=== PATIENT | female | born 1935 | race Caucasian/White ===

== ENCOUNTER 2022-05-06 11:17 | Emergency (ER) | payer MEDICARE, MEDICAID, SELFPAY ==
[2022-05-06 11:19] VITALS: BP 146/108; PULSE 78; RESP 16; TEMP 37.1; O2SAT 97
--- NOTE | 2022-05-06 11:33 | XRR_ITS ---
PROCEDURE INFORMATION: Exam: XR Left Hip Exam date and time: 05/06/2022 12:13 PM Age: 86 years old Clinical indication: Pain and injury or trauma; Fall; Blunt trauma (contusions or hematomas); Hip pain; Left hip; Injury date: 2 weeks ago; Additional info: Pain; Fall 2 weeks ago, only 2 views submitted by tech TECHNIQUE: Imaging protocol: Radiologic exam of the Left hip. Views: 2 or 3 views hip with pelvis when performed. COMPARISON: No relevant prior studies available. FINDINGS: Limitations: Very low contrast resolution related to body habitus. Bones/joints: Femoroacetabular alignment is normal. The pelvis and proximal femora are grossly intact. Assessment for nondisplaced fracture is very limited. There is moderate degenerative disease in the lower lumbar spine. Soft tissues: Soft tissues are unremarkable. XR/XR hip LT 2-3V wo/w pel* [id number] IMPRESSION: Limited assessment for fracture. Consider repeat radiographs or CT.
--- NOTE | 2022-05-06 11:33 | W.ED.EXTPRO ---
HPI - Extremity Problem General: Chief complaint: Extremity Injury, Lower Stated complaint: LEFT HIP PAIN Time Seen by Provider: 05/06/22 11:27 Source: patient Mode of arrival: EMS Limitations: no limitations History of Present Illness: See nursing assessment. Patient states she fell 2 weeks ago landing on her left side. She states she has had left hip pain and left anterior lateral pelvis pain since then. She is able to walk but states it hurts to walk. States the pain is worse at night. It does improve through the night and is mild in the morning. She denies being on blood thinners. She denies any other problems. Quality: aching Radiation: none Associated symptoms: Deny chest pain, fever(s) or rash Review of Systems Const: Denies: fever(s) or chills Eyes: Denies: change in vision ENMT: Denies: throat pain Card: Denies: chest pain Resp: Denies: dyspnea GI: Denies: abdominal pain, nausea or vomiting : Denies: flank pain Musc: Reports: joint pain; Denies: neck pain, back pain, extremity swelling, joint swelling, joint redness or joint warmth Skin/Breast: Denies: rash or pruritus Neuro: Denies: headache(s) or numbness in extremities Psych: Denies: anxiety Jonas/Lymph: Denies: enlarged lymph nodes Physical Exam Const: COMMON NORMALS: no acute distress, patient oriented x3, no limitations and well nourished GENERAL APPEARANCE: cooperative HENMT: COMMON NORMALS: normocephalic and atraumatic HEAD & SCALP: normocephalic and atraumatic FACE & SINUS: normal facial exam Eye: COMMON NORMALS: EOMs intact bilaterally Neck/C-Spine: COMMON NORMALS: full ROM, no lymphadenopathy and supple GENERAL: Yes normal visual inspection Lymph: LYMPHATIC: no lymphadenopathy noted Chest: COMMONS NORMALS: normal inspection of the chest and normal palpation of entire chest wall CHEST: No Ecchymosis present and No rash Resp: COMMON NORMALS: normal respiratory effort, No retractions and clear to auscultation bilaterally EFFORT & INSPECTION: No respiratory distress AUSCULTATION: clear to auscultation bilaterally Cardio: COMMON NORMALS: regular rate, regular rhythm and Peripheral pulses 2+ throughout JUGULAR VENOUS DISTENTION: no JVD RATE: regular rate RHYTHM: regular rhythm PERIPHERAL PULSES: Peripheral pulses 2+ throughout GI: COMMON NORMALS: Normal to inspection, nondistended, normoactive bowel sounds present and non-tender OTHER: Morbid obesity : COMMON NORMALS: Yes no CVA tenderness BLADDER/KIDNEY EXAM: Yes no CVA tenderness Back/Pelvis: COMMON NORMALS: no CVA tenderness Extremity: COMMON NORMALS: full ROM and capillary refill normal OTHER: Moderate pain with flexion of the left hip. No shortening or crepitus. No erythema. No rash. No abscess. Pain is located to the anterior lateral aspect of the left hip area. Neuro: COMMON NORMALS: patient oriented x3, CN's II-XII intact bilaterally, no focal motor deficits and no sensory deficits noted Psych: COMMON NORMALS: mental status grossly normal and Normal thought process present THOUGHT PROCESS: Normal thought process present Skin: COMMON NORMALS: no rashes or lesions noted and no wounds GENERAL SKIN EXAM: no rashes or lesions noted OTHER: No erythema, lesions, or abscess. Course Vital Signs: Vital signs: Vital Signs Temperature 98.8 F 05/06/22 11:19 Pulse Rate 76 05/06/22 13:50 Respiratory Rate 16 05/06/22 13:50 Blood Pressure 178/85 05/06/22 13:50 Pulse Oximetry 95 05/06/22 13:50 Oxygen Delivery Me thod 05/06/22 11:19 MDM - Extremity (Nontraumatic) Medical Decision Making Possible occult fracture of the left hip or pelvis. CT shows no fracture of the acetabulum or hip. Patient has arthritis in the left hip. Lab Data Radiology Impressions Hip/Pelvis X-Ray 05/06/22 11:33 IMPRESSION: Limited assessment for fracture. Consider repeat radiographs or CT. ADDENDUM: 05/06/22 1306 An additional image of the left hip has been provided. Contrast resolution is not significantly improved. Consider CT. Hip CT 05/06/22 12:43 IMPRESSION: 1. No LEFT hip fracture is identified. There is no displacement. 2. Mild LEFT hip joint arthritis. 3. Atherosclerotic changes femoral artery. 4. If there is continued concern of a subtle, occult fracture MRI would be the next study of choice. Imaging Data Other CT: Radiologist's impression: Ordering Provider/Ordering MD: Osmel Ritchie MD Date of Service: 05/06/22 Procedure(s): CT hip LT wo con* [id number] Accession Number(s): [id number] Report Number: [id number] WS: [id number] CT LEFT HIP, NONCONTRAST. HISTORY: pain ; fall Technique:? All CT scans at [facility] use at least one of these dose optimization techniques: automated exposure control; mA and/or kV adjustment per patient size (includes targeted exams where dose is matched to clinical indication); or iterative reconstruction. DLP: 4.70 mGy.cm COMPARISON: Radiographs 05/06/2022 No definite fracture is identified involving the LEFT hip. There is no displacement. Mild narrowing of the LEFT hip joint. Moderate enthesopathy involving the greater trochanter. No definite fractures involving the pubic rami or acetabulum. No significant joint effusion. Extensive calcification in the femoral artery. CT/CT hip LT wo con* [id number] IMPRESSION: ? 1.? No LEFT hip fracture is identified. There is no displacement. 2.? Mild LEFT hip joint arthritis. 3.? Atherosclerotic changes femoral artery. 4.? If there is continued concern of a subtle, occult fracture MRI would be the next study of choice. ? ? Dictated By: Adela Ann DO Signed By: Adela Ann DO Signed Date/Time: 05/06/22 1333 Discharge Plan Discharge Patient Disposition: Home Clinical Impression: Arthritis of left hip, Acute pain of left hip Condition: Stable Prescriptions: No Action irbesartan-hydrochlorothiazide 150-12.5 mg tablet 1 tab PO BEDTIME gabapentin 400 mg capsule See Rx Instructions .ROUTE .COMPLEX Rx Instructions: 400mg (1 cap) po qam, 400mg (1 cap) po at noon and 800mg (2 caps) po at 17:00 amlodipine 5 mg tablet 5 mg PO BEDTIME Tylenol Ex Str Rapid Release 500 mg Tablet See Rx Instructions .ROUTE .COMPLEX Rx Instructions: 1,000mg po daily@02:00,1,000mg po at 07:00, 1,000mg po at noon, 1,000mg po at 17:00 and 500mg po at 19:00 duloxetine 60 mg capsule,delayed release(DR/EC) 60 mg PO BEDTIME Discharge Orders: Discharge ED (Routine); Ordered 05/06/22 Ordered By: Osmel Ritchie Discharge Activity: Increase activity as tolerated Patient Instructions: Acetaminophen (By mouth), Ibuprofen (By mouth), Osteoarthritis (ED) Activity Restrictions/Additional Instructions: CT scan of the hip showed no fracture of the hip or pelvis. May take ibuprofen or Tylenol as needed for pain. Consider using a walker to get around to help stabilize you. Follow-up with family doctor as needed. Coding Level of Care Code ED Sales Representative [employer] for Vasyl Jean-Baptiste
[2022-05-06 11:34] VITALS: BP 142/99; PULSE 81; RESP 16; O2SAT 97
--- NOTE | 2022-05-06 12:27 | PC.PHAR ---
pts family verified medications -states the pt was taking a 81mg aspirin daily but not been taking since jan 2022-
--- NOTE | 2022-05-06 12:43 | CT_ITS ---
WS: [id number] CT LEFT HIP, NONCONTRAST. HISTORY: pain ; fall Technique: All CT scans at [facility] use at least one of these dose optimization techniques: automated exposure control; mA and/or kV adjustment per patient size (includes targeted exams where dose is matched to clinical indication); or iterative reconstruction. DLP: 4.70 mGy.cm COMPARISON: Radiographs 05/06/2022 No definite fracture is identified involving the LEFT hip. There is no displacement. Mild narrowing o f the LEFT hip joint. Moderate enthesopathy involving the greater trochanter. No definite fractures i nvolving the pubic rami or acetabulum. No significant joint effusion. Extensive calcification in the femoral artery. CT/CT hip LT wo con* [id number] IMPRESSION: 1. No LEFT hip fracture is identified. There is no displacement. 2. Mild LEFT hip joint arthritis. 3. Atherosclerotic changes femoral artery. 4. If there is continued concern of a subtle, occult fracture MRI would be the next study of choice.
[2022-05-06 13:50] VITALS: BP 178/85; PULSE 76; RESP 16; O2SAT 95
[2022-05-06 14:22] VITALS: BP 178/85; PULSE 76; RESP 16; O2SAT 95
== END 2022-05-06 14:24 | disposition home or self-care (01) ==
PROVIDERS: Emergency Provider Family Medicine
DX: M16.12 Unilateral primary osteoarthritis, left hip (principal)
CPT/HCPCS: 73502; 73700; 99284

== ENCOUNTER → 2023-05-12 14:40 | Outpatient (BNVA) | payer MEDICARE, MEDICAID, SELFPAY | PROVIDERS: PCP Internal Medicine; Referring Provider Internal Medicine; Visit Provider Dermatology | DX: D48.5 Neoplasm of uncertain behavior of skin (principal); L82.1 Other seborrheic keratosis; L21.8 Other seborrheic dermatitis; L57.0 Actinic keratosis | CPT/HCPCS: 11102; 17000; 99204 ==

== ENCOUNTER → 2023-06-22 07:45 | Outpatient (BNVA) | payer MEDICARE, MEDICAID, SELFPAY | PROVIDERS: PCP Internal Medicine; Visit Provider Dermatology | DX: C44.311 Basal cell carcinoma of skin of nose (principal) | CPT/HCPCS: 15260; 17311 ==

== ENCOUNTER → 2023-08-21 08:45 | Outpatient (BNVA) | payer MEDICARE, MEDICAID, SELFPAY | PROVIDERS: PCP Internal Medicine; Visit Provider Dermatology | DX: Z48.817 Encounter for surgical aftercare following surgery on the skin and subcutaneous tissue (principal); Z85.828 Personal history of other malignant neoplasm of skin; L57.8 Other skin changes due to chronic exposure to nonionizing radiation; D22.39 Melanocytic nevi of other parts of face | CPT/HCPCS: 99213 ==

== ENCOUNTER → 2023-12-02 10:10 | Outpatient (BNVA) | payer MEDICARE, MEDICAID, SELFPAY | PROVIDERS: PCP Internal Medicine; Visit Provider Nurse Practitioner Family | DX: L57.0 Actinic keratosis (principal); L85.3 Xerosis cutis; L57.8 Other skin changes due to chronic exposure to nonionizing radiation; D22.39 Melanocytic nevi of other parts of face; Z85.828 Personal history of other malignant neoplasm of skin | CPT/HCPCS: 17000; 99213 ==

== ENCOUNTER → 2024-05-31 10:50 | Outpatient (BNVA) | payer MEDICARE, MEDICAID, SELFPAY | PROVIDERS: PCP Internal Medicine; Visit Provider Nurse Practitioner Family | DX: L30.4 Erythema intertrigo (principal); I87.2 Venous insufficiency (chronic) (peripheral); L85.3 Xerosis cutis; D22.39 Melanocytic nevi of other parts of face; L57.8 Other skin changes due to chronic exposure to nonionizing radiation; Z08 Encounter for follow-up examination after completed treatment for malignant neoplasm; Z85.828 Personal history of other malignant neoplasm of skin; L57.0 Actinic keratosis | CPT/HCPCS: 17000; 99214 ==

== ENCOUNTER 2024-06-05 09:11 | Emergency (ER) | payer MEDICARE, MEDICAID, SELFPAY ==
[2024-06-05 09:11] VITALS: BP 150/76; PULSE 81; RESP 17; TEMP 36.6; O2SAT 94
--- NOTE | 2024-06-05 09:21 | CTR_ITS ---
PROCEDURE INFORMATION: Exam: CT Head Without Contrast Exam date and time: 06/05/2024 9:41 AM Age: 88 years old Clinical indication: Injury or trauma; Fall; Blunt trauma (contusions or hematomas) TECHNIQUE: Imaging protocol: Computed tomography of the head without contrast. Radiation optimization: All CT scans at this facility use at least one of these dose optimization techniques: automated exposure control; mA and/or kV adjustment per patient size (includes targeted exams where dose is matched to clinical indication); or iterative reconstruction. COMPARISON: No relevant prior studies available. RADIATION DOSE METRICS: Total DLP (mGy-cm): 1104.7 FINDINGS: Brain: There are bilateral periventricular white matter and centrum semiovale hypodensities, consistent with chronic ischemic small vessel disease. Age related diffuse parenchymal volume loss. Chronic ischemic changes in bilateral insular regions. No recent infarct, intracranial bleed or mass effect. Cerebral ventricles: Ex vacuo dilatation of the ventricles. Pituitary gland and sella: There is a normal empty pituitary sella. Paranasal sinuses: Visualized sinuses are unremarkable. No fluid levels. Mastoid air cells: Visualized mastoid air cells are well aerated. Orbital cavities: Post right cataract surgery. Bones: Unremarkable. No acute fracture. Soft tissues: Unremarkable. CT/CT head wo con* [id number] IMPRESSION: No acute intracranial posttraumatic changes.
--- NOTE | 2024-06-05 09:21 | CTR_ITS ---
PROCEDURE INFORMATION: Exam: CT Cervical Spine Without Contrast Exam date and time: 06/05/2024 9:41 AM Age: 88 years old Clinical indication: Injury or trauma; Fall; Blunt trauma TECHNIQUE: Imaging protocol: Computed tomography of the cervical spine without contrast. Radiation optimization: All CT scans at this facility use at least one of these dose optimization techniques: automated exposure control; mA and/or kV adjustment per patient size (includes targeted exams where dose is matched to clinical indication); or iterative reconstruction. COMPARISON: CT head wo con* [id number] 06/05/2024 9:41 AM RADIATION DOSE METRICS: Total DLP (mGy-cm): 265.5 FINDINGS: Bones: The cervical spine demonstrates mild degenerative changes at multiple levels. Mild anterolisthesis of C4 over C5 and C5 over C6. CPPD changes around the dens. No acute fracture. No spondylolisthesis. No compression deformity. Lungs: Lung apices are normal. Vasculature: There are bilateral carotid artery calcified atheromas. Soft tissues: Unremarkable. CT/CT cervical spin wo con* [id number] IMPRESSION: No acute posttraumatic changes in the cervical spine.
--- NOTE | 2024-06-05 09:21 | CTR_ITS ---
PROCEDURE INFORMATION: Exam: CT Thoracic Spine Without Contrast Exam date and time: 06/05/2024 9:48 AM Age: 88 years old Clinical indication: Injury or trauma; Fall; Blunt trauma (contusions or hematomas) TECHNIQUE: Imaging protocol: Computed tomography of the thoracic spine without contrast. Radiation optimization: All CT scans at this facility use at least one of these dose optimization techniques: automated exposure control; mA and/or kV adjustment per patient size (includes targeted exams where dose is matched to clinical indication); or iterative reconstruction. COMPARISON: CT cervical spin wo con* [id number] 06/05/2024 9:41 AM RADIATION DOSE METRICS: Total DLP (mGy-cm): 1050 FINDINGS: Bones/joints: There are diffuse enthesopathic changes consistent with benign diffuse idiopathic skeletal hyperostosis (DISH). Mild curvature of the thoracic spine convex to the right. No compression deformity. No spondylolisthesis. No acute fracture. Soft tissues: Unremarkable. Vasculature: Calcified atheromas of the visualized arteries. Lymph nodes: Calcified right hilar lymph nodes. Coronary arteries: There is moderate atherosclerotic calcification of the coronary arteries. Other findings: A small hiatal hernia is present. CT/CT thoracic spin wo con* [id number] IMPRESSION: No acute posttraumatic changes in the thoracic spine.
--- NOTE | 2024-06-05 09:21 | CTR_ITS ---
PROCEDURE INFORMATION: Exam: CT Lumbar Spine Without Contrast Exam date and time: 06/05/2024 9:48 AM Age: 88 years old Clinical indication: Injury or trauma; Fall; Blunt trauma (contusions or hematomas) TECHNIQUE: Imaging protocol: Computed tomography of the lumbar spine without contrast. Radiation optimization: All CT scans at this facility use at least one of these dose optimization techniques: automated exposure control; mA and/or kV adjustment per patient size (includes targeted exams where dose is matched to clinical indication); or iterative reconstruction. COMPARISON: CT thoracic spin wo con* [id number] 06/05/2024 9:48 AM RADIATION DOSE METRICS: Total DLP (mGy-cm): 1128 FINDINGS: Bones/joints: Demineralization of the visualized bones, limiting sensitivity for nondisplaced fractures. There are mild degenerative changes of the sacroiliac joints. Bilateral facet joint arthropathy at L4-L5 and L5-S1 with mild anterolisthesis of L4 over L5 and L5 over S1. No compression deformity. No acute fracture. The lumbar spine demonstrates moderate degenerative changes at multiple levels. Vasculature: Calcified atheromas of the visualized arteries. Soft tissues: Unremarkable. CT/CT lumbar spine wo con* [id number] IMPRESSION: No acute posttraumatic changes in the lumbar spine.
--- NOTE | 2024-06-05 09:25 | W.ED.FALL ---
HPI - Fall General: Chief Complaint: Fall Stated Complaint: ams; fall Time Seen by Provider: 06/05/24 09:13 Source: EMS Mode of arrival: EMS Limitations: altered mental status History of Present Illness: 88-year-old female who is here from [facility] she has a history of dementia. Patient had unwitnessed fall at the [facility] staff believes she may have hit her head patient's complaining of some head neck and back pain history is difficult from patient due to her dementia she is only alert to self. Associated symptoms-after fall: Reports headache(s) and neck pain; Denies abdominal pain or chest pain Related Data Home Medications ?Medication ?Instructions ?Recorded ?Confirmed acetaminophen 500 mg tablet See Rx Instructions .Route .COMPLEX 05/06/22 02/20/23 amlodipine 5 mg tablet 5 mg PO BEDTIME 05/06/22 02/20/23 duloxetine 60 mg capsule,delayed 60 mg PO BEDTIME 05/06/22 02/20/23 release gabapentin 400 mg capsule See Rx Instructions .Route .COMPLEX 05/06/22 02/20/23 irbesartan 150 1 tab PO BEDTIME 05/06/22 02/20/23 mg-hydrochlorothiazide 12.5 mg tablet aspirin 81 mg tablet,delayed 162 mg PO DAILY 01/28/23 02/20/23 release dextromethorphan-guaifenesin 5 10 ml PO Q4H PRN 01/28/23 02/20/23 mg-100 mg/5 mL oral liquid hydrocodone 5 mg-acetaminophen 325 1 tab PO BID PRN 01/28/23 02/20/23 mg tablet hydrocodone 5 mg-acetaminophen 325 1 tab PO Q6H PRN 01/28/23 02/20/23 mg tablet multivitamin with minerals 1 cap PO DAILY 01/28/23 02/20/23 polyethylene glycol 3350 17 4 g PO DAILY 01/28/23 02/20/23 gram/dose oral powder (Miralax) propylene glycol 0.6 % eye drops 1 drp ophthalmic (eye) DAILY PRN 01/28/23 02/20/23 (Systane Complete) vitamin B complex 1 tab PO DAILY 01/28/23 02/20/23 quetiapine 25 mg tablet mg PO 02/20/23 02/20/23 Allergies Allergy/AdvReac Type Severity Reaction Status Date / Time No Known Allergies Allergy Verified 02/20/23 15:47 Review of Systems Const: Denies: fever(s) Eyes: Denies: change in vision Card: Denies: chest pain GI: Denies: abdominal pain : Denies: flank pain Musc: Reports: neck pain and back pain; Denies: extremity pain Neuro: Reports: headache(s) PFSH ED PFSH: Social History Smoking and tobacco/nicotine status: never used tobacco/nicotine Physical Exam Const: COMMON NORMALS: no acute distress and healthy appearing; negative for patient oriented x3 HENMT: COMMON NORMALS: normocephalic and atraumatic HEAD & SCALP: normocephalic and atraumatic Eye: COMMON NORMALS: Equal, round and reactive pupils present and EOMs intact bilaterally PUPIL: Yes Equal, round and reactive pupils present Neck/C-Spine: OTHER: in c collar Chest: COMMONS NORMALS: normal inspection of the chest and normal palpation of entire chest wall Resp: COMMON NORMALS: normal respiratory effort, No retractions, No use of accessory muscles and clear to auscultation bilaterally AUSCULTATION: clear to auscultation bilaterally Cardio: COMMON NORMALS: regular rate, regular rhythm and No murmurs present (Cardio) RATE: regular rate RHYTHM: regular rhythm GI: COMMON NORMALS: Normal to inspection, nondistended, normoactive bowel sounds present, Soft to palpation, non-tender and no masses PALPATION: Yes Soft to palpation Extremity: COMMON NORMALS: normal to inspection and full ROM Neuro: COMMON NORMALS: moves all extremities and no focal motor deficits; negative for patient oriented x3 Psych: COMMON NORMALS: Normal thought process present and cooperative THOUGHT PROCESS: Normal thought process present Skin: COMMON NORMALS: no rashes or lesions noted and no wounds GENERAL SKIN EXAM: no rashes or lesions noted Course Vital Signs: Vital signs: Vital Signs Temperature 97.8 F 06/05/24 09:11 Pulse Rate 81 06/05/24 09:11 Respiratory Rate 17 06/05/24 09:11 Blood Pressure 150/76 06/05/24 09:11 Pulse Oximetry 94 06/05/24 09:11 Oxygen Delivery Me thod Room Air 06/05/24 09:11 MDM - Fall Medical Decision Making Patient presents here with a fall possible closed head injury imaging here is all negative she stable for discharge back to [facility] Medical Records I reviewed the patient's medical records. Lab Data Radiology Impressions Cervical Spine CT 06/05/24 09:21 IMPRESSION: No acute posttraumatic changes in the cervical spine. Head CT 06/05/24 09:21 IMPRESSION: No acute intracranial posttraumatic changes. Lumbar Spine CT 06/05/24 09:21 IMPRESSION: No acute posttraumatic changes in the lumbar spine. Thoracic Spine CT 06/05/24 09:21 IMPRESSION: No acute posttraumatic changes in the thoracic spine. Pelvis X-Ray 06/05/24 09:28 IMPRESSION: No displaced fracture. All radiology interpretation(s) finalized by discharge Discharge Plan Discharge Patient Disposition: Home Clinical Impression: Fall Condition: Stable Prescriptions: No Action lidocaine HCl [Lidocaine Viscous] 2 % solution 1 applic topical ONCE Qty: 1 0RF hydrocodone-acetaminophen 5-325 mg tablet 1 tab PO BID PRN hydrocodone-acetaminophen 5-325 mg tablet 1 tab PO Q6H PRN aspirin 81 mg tablet,delayed release (DR/EC) 162 mg PO DAILY vitamin B complex Tablet 1 tab PO DAILY dextromethorphan-guaifenesin 5-100 mg/5 mL liquid 10 ml PO Q4H PRN polyethylene glycol 3350 [Miralax] 17 gram/dose powder 4 g PO DAILY multivitamin with minerals Capsule 1 cap PO DAILY Systane Complete 0.6 % drops 1 drp ophthalmic (eye) DAILY PRN lidocaine HCl [Lidocaine Viscous] 2 % solution 1 applic topical ONCE Qty: 1 0RF quetiapine 25 mg tablet PO irbesartan-hydrochlorothiazide 150-12.5 mg tablet 1 tab PO BEDTIME gabapentin 400 mg capsule See Rx Instructions .ROUTE .COMPLEX Rx Instructions: 400mg (1 cap) po qam, 400mg (1 cap) po at noon and 800mg (2 caps) po at 17:00 amlodipine 5 mg tablet 5 mg PO BEDTIME Tylenol Ex Str Rapid Release 500 mg Tablet See Rx Instructions .ROUTE .COMPLEX Rx Instructions: 1,000mg po daily@02:00,1,000mg po at 07:00, 1,000mg po at noon, 1,000mg po at 17:00 and 500mg po at 19:00 duloxetine 60 mg capsule,delayed release(DR/EC) 60 mg PO BEDTIME Discharge Orders: Discharge ED (Routine); Ordered 06/05/24 Ordered By: Dirk Meyer Referrals: Luis Kennedy MD [Primary Care Provider] - Discharge Diet: Advance as tolerated Discharge Activity: Resume usual activity Patient Instructions: Fall Prevention (ED) Print Language: French Coding Level of Care Code ED Psychiatric Security Nurse for Vasyl Jean-Baptiste
--- NOTE | 2024-06-05 09:28 | XRR_ITS ---
PROCEDURE INFORMATION: Exam: XR Pelvis Exam date and time: 06/05/2024 9:54 AM Age: 88 years old Clinical indication: Injury or trauma; Fall; Blunt trauma (contusions or hematomas); Bilateral; Pelvic region TECHNIQUE: Imaging protocol: Radiologic exam of the pelvis. Views: 1 or 2 view. COMPARISON: CT lumbar spine wo con* [id number] 06/05/2024 9:48 AM FINDINGS: Limitations: Very low contrast resolution related to body habitus. Bones/joints: There are mild degenerative changes of the hip joints. The pubic symphysis demonstrates mild degenerative changes. There are mild degenerative changes of the sacroiliac joints. Chronic fracture deformity of the right pubic bone. Soft tissues: Unremarkable. XR/XR pelvis 1-2V* [id number] IMPRESSION: No displaced fracture.
[2024-06-05 14:18] VITALS: BP 146/57; PULSE 73; O2SAT 97
== END 2024-06-05 14:19 | disposition home or self-care (01) ==
PROVIDERS: Emergency Provider Emergency Medicine; PCP Internal Medicine
DX: M54.9 Dorsalgia, unspecified (principal); Z79.82 Long term (current) use of aspirin; R51.9 Headache, unspecified; M54.2 Cervicalgia; R10.2 Pelvic and perineal pain; W19.XXXA Unspecified fall, initial encounter
CPT/HCPCS: 70450; 72125; 72128; 72131; 72170; 99284